=== PATIENT | female | born 1975 | race African-American/Black ===

== ENCOUNTER 2018-06-04 18:47 | Emergency (ER) | payer MEDICAID ==
[~2018-06-04] VITALS: Ht 162.6 cm; Wt 75.0 kg
[2018-06-04 22:46] LABS: CLARITY URINE CLOUDY (CLEAR); KETONES URINE NEGATIVE (NEGATIVE); LEUKOCYTE ESTERASE URINE 1+ (NEGATIVE); NITRITE URINE NEGATIVE (NEGATIVE); OCCULT BLOOD URINE 3+ (NEGATIVE); PROTEIN URINE 2+ (NEGATIVE); SPECIFIC GRAVITY URINE 1.015 (1.005-1.030)
[2018-06-04 22:49] LABS: COLOR URINE BLOODY (YELLOW)
[2018-06-04 22:52] LABS: HEMATOCRIT. 30.7 % (36.0-48.0); HEMOGLOBIN. 9.4 g/dL (12.0-16.0); MEAN CORPUSCULAR HEMOGLOBIN 21.6 pg (28.0-32.0); MEAN CORPUSCULAR VOLUME 70.4 fL (81.0-99.0); MEAN PLATELET VOLUME 9.4 fl (7.4-10.4); PLATELET 153 x1000/uL (130-400); RED BLOOD CELL COUNT 4.36 mill/uL (4.2-5.4); RED CELL DISTRIBUTION WIDTH 28.1 % (11.6-14.6)
[2018-06-04 22:58] LABS: CHLORIDE 110 mEq/L (98-107)
[2018-06-04 23:08] LABS: PROTHROMBIN TIME 10.4 sec (9.6-11.0)
[2018-06-04 23:16] LABS: PLATELET ESTIMATE NORMAL
[2018-06-05 01:11] VITALS: BP 161/103
== END 2018-06-05 01:15 | disposition home or self-care (01) ==
LOC: ER 18:47
DX: D25.9 Leiomyoma of uterus, unspecified (principal); I10 Essential (primary) hypertension; Z98.890 Other specified postprocedural states; Z98.51 Tubal ligation status
CPT/HCPCS: 36415; 76830; 76856; 81025; 84484; 93005; 99284

== ENCOUNTER 2022-07-09 08:25 | Emergency (ER) | payer MEDICAID, OTHER ==
[~2022-07-09] VITALS: Ht 157.5 cm; Wt 82.0 kg
[2022-07-09 09:37] LABS: BASOPHILS % 1.3 % (0.0-2.0); CHLORIDE 107 mEq/L (98-107); HEMATOCRIT. 37.1 % (36.0-48.0); HEMOGLOBIN. 11.7 g/dL (12.0-16.0); LYMPHOCYTES % 22.7 % (20.0-50.0); MEAN CORPUSCULAR HEMOGLOBIN 24.4 pg (28.0-32.0); MONOCYTES % 7.7 % (2.0-8.0); NEUTROPHILS % 67.3 % (40.0-76.0); RED BLOOD CELL COUNT 4.82 mill/uL (4.2-5.4); RED CELL DISTRIBUTION WIDTH 20.1 % (11.6-14.6)
[2022-07-09 10:38] LABS: PLATELET 176 x1000/uL (130-400)
[2022-07-09 10:41] LABS: CLARITY URINE CLEAR (CLEAR); COLOR URINE DARK YELLOW (YELLOW); KETONES URINE 1+ (NEGATIVE); LEUKOCYTE ESTERASE URINE NEGATIVE (NEGATIVE); NITRITE URINE NEGATIVE (NEGATIVE); OCCULT BLOOD URINE 2+ (NEGATIVE); PROTEIN URINE 1+ (NEGATIVE)
[2022-07-09] MEDS ORDERED: POTASSIUM CHLORIDE 20MEQ/PACKET PO NR (10:45)
[2022-07-09] MEDS ORDERED: HYDRALAZINE 20MG/ML VIAL IV ONE ×2 (11:15→14:30)
[2022-07-09] MEDS ORDERED: LORAZEPAM 2MG/ML CPJ IV ONE (11:15)
[2022-07-09] MEDS ORDERED: FOLIC ACID 1 MG, THIAMINE HCL 100 MG, MVI, ADULT NO.1 10 ML in DEXTROSE 5% WATER 1,000 ML IV ONE ×4 (14:30)
[2022-07-09 18:00] VITALS: BP 157/110
== END 2022-07-09 20:00 | disposition short-term general hospital (02) ==
LOC: ER 08:25 → CANBEDREQ 17:41 → ER 20:00
DX: F10.229 Alcohol dependence with intoxication, unspecified (principal); R10.13 Epigastric pain; E87.6 Hypokalemia; I16.0 Hypertensive urgency; Z98.51 Tubal ligation status; Z98.890 Other specified postprocedural states; Y90.0 Blood alcohol level of less than 20 mg/100 ml
CPT/HCPCS: 36415; 70450; 71045; 80053; 81003; 81025; 83690; 84484; 85025; 93005; 96365; 96375; 96376; 99291; J0360; J2060; J3411; J3490; J7070

== ENCOUNTER 2023-03-24 12:17 | Emergency (ER) | payer OTHER ==
[~2023-03-24] VITALS: Ht 162.6 cm; Wt 65.0 kg
[2023-03-24 12:18] VITALS: O2SAT 95
[2023-03-24] MEDS: KETOROLAC 30MG/ML VIAL IV STA (12:42)
[2023-03-24] MEDS: MORPHINE SULFATE 4 MG/ML CPJ (NOT FOR IM USE) IV STA (12:42)
[2023-03-24] MEDS: ONDANSETRON HCL 4MG/2ML INJ IV STA (12:42)
[2023-03-24] MEDS: SODIUM CHLORIDE 0.9% 1,000 ML IV ONE (12:45)
[2023-03-24 13:11] LABS: CLARITY URINE CLOUDY (CLEAR); COLOR URINE YELLOW (YELLOW); GLUCOSE URINE NEGATIVE (NEGATIVE); KETONES URINE NEGATIVE (NEGATIVE); LEUKOCYTE ESTERASE URINE NEGATIVE (NEGATIVE); NITRITE URINE NEGATIVE (NEGATIVE); OCCULT BLOOD URINE NEGATIVE (NEGATIVE); PH URINE 8.5 (4.5-8.0); PROTEIN URINE TRACE (NEGATIVE); SPECIFIC GRAVITY URINE 1.012 (1.005-1.030)
[2023-03-24 13:22] LABS: SQUAMOUS EPITHELIAL CELL URINE 1+ /lpf (RARE/1+)
[2023-03-24 13:23] LABS: AMORPHOUS SEDIMENT URINE 2+ /lpf; BACTERIA URINE TRACE; RBC URINE 0-2 /hpf (0-2); WBC URINE 0-2 /hpf (0-2)
[2023-03-24 13:27] LABS: HEMATOCRIT. 36.1 % (36.0-48.0); HEMOGLOBIN. 11.2 g/dL (12.0-16.0); MEAN CORPUSCULAR HEMOGLOBIN 23.8 pg (28.0-32.0); MEAN CORPUSCULAR VOLUME 76.8 fL (81.0-99.0); RED CELL DISTRIBUTION WIDTH 19.8 % (11.6-14.6); WHITE BLOOD COUNT 5.9 x1000/uL (4.5-11.0)
[2023-03-24 13:38] LABS: HCG SCREEN NEGATIVE
[2023-03-24 13:43] LABS: ALANINE AMINOTRANSFERASE 37 IU/L (10-49); ALBUMIN 4.6 g/dL (3.2-4.8); ASPARTATE AMINOTRANSFERASE 57 IU/L (<34); BILIRUBIN TOTAL 0.9 mg/dL (0.1-1.0); CALCIUM 10.7 mg/dL (8.7-10.4); CARBON DIOXIDE 22 mEq/L (21-32); CHLORIDE 108 mEq/L (98-107); CREATININE 0.9 mg/dL (0.6-1.0); GLUCOSE 96 mg/dL (70-105); POTASSIUM 3.8 mEq/L (3.5-5.1); PROTEIN TOTAL 7.8 g/dL (6.0-8.3); SODIUM 138 mEq/L (136-145); UREA NITROGEN BLOOD 10 mg/dL (9-23)
[2023-03-24 13:54] LABS: DIFFERENTIAL COMMENT 1
[2023-03-24 14:49] LABS: ANISOCYTOSIS 1+; MICROCYTOSIS 1+; PLATELET ESTIMATE NORMAL
[2023-03-24 16:35] VITALS: BP 204/116; PULSE 63; RESP 14; TEMP 97.5
[2023-03-24] MEDS: AMLODIPINE 5MG TABLET PO ONE (17:02)
[2023-03-24] MEDS ORDERED: IBUP-2028 MT (18:06)
== END 2023-03-24 18:38 | disposition home or self-care (01) ==
LOC: ER 12:17
DX: K80.80 Other cholelithiasis without obstruction (principal); F10.20 Alcohol dependence, uncomplicated; I10 Essential (primary) hypertension; Z98.51 Tubal ligation status; Z98.890 Other specified postprocedural states; Y90.9 Presence of alcohol in blood, level not specified
CPT/HCPCS: 99285; 74176; 96374; 96361; 76700; 96375; 80053; 81003; 81025; 84703; 83690; 85025; 36415; J1885; J2405; J2270; J7030

== ENCOUNTER 2024-05-11 08:34 | Emergency (ER) | payer MEDICAID ==
[~2024-05-11] VITALS: Ht 157.5 cm; Wt 81.0 kg
[~2024-05-11 08:34] MED LIST: ALBU18HF2 IH; APIX5TAB MT; LEVO-65 MT; METH4TAB95 MT
[2024-05-11 08:40] VITALS: O2SAT 98
[2024-05-11 09:20] LABS: BASOPHILS % 0.5 % (0.0-2.0); DIFFERENTIAL COMMENT 0; EOSINOPHILS % 0.7 % (0.0-5.0); HEMATOCRIT. 36.2 % (36.0-48.0); HEMOGLOBIN. 11.3 g/dL (12.0-16.0); LYMPHOCYTES % 23.2 % (20.0-50.0); MEAN CORPUSCULAR HEMOGLOBIN 27.1 pg (28.0-32.0); MEAN CORPUSCULAR HGB CONC 31.3 g/dL (31.0-37.0); MEAN CORPUSCULAR VOLUME 86.7 fL (81.0-99.0); MEAN PLATELET VOLUME 11.7 fl (7.4-10.4); MONOCYTES % 5.7 % (2.0-8.0); NEUTROPHILS % 69.9 % (40.0-76.0); PLATELET 201 x1000/uL (130-400); RED BLOOD CELL COUNT 4.18 mill/uL (4.2-5.4); RED CELL DISTRIBUTION WIDTH 15.3 % (11.6-14.6)
[2024-05-11 09:29] LABS: CALCIUM 10.2 mg/dL (8.7-10.4)
[2024-05-11 09:32] LABS: POTASSIUM 3.3 mEq/L (3.5-5.1)
[2024-05-11 09:33] LABS: CREATININE 1.9 mg/dL (0.6-1.0)
[2024-05-11 09:50] LABS: HCG SCREEN NEGATIVE
[2024-05-11] MEDS ORDERED: MORPHINE SULFATE 2 MG/ML INJ (NOT FOR IM USE) IV ONE (10:30)
[2024-05-11] MEDS ORDERED: PANTOPRAZOLE SODIUM 40 MG/VIAL IV ONE (10:30)
[2024-05-11] MEDS ORDERED: ONDANSETRON HCL 4MG/2ML INJ IV ONE (10:30)
[2024-05-11] MEDS: MORPHINE SULFATE 2 MG/ML INJ (NOT FOR IM USE) IV NR (13:23)
[2024-05-11] MEDS: ONDANSETRON HCL 4MG/2ML INJ IV NR (13:23)
[2024-05-11] MEDS: PANTOPRAZOLE SODIUM 40 MG/VIAL IV NR (13:23)
[2024-05-11] MEDS: SODIUM CHLORIDE 0.9% 1,000 ML IV ONE (13:23)
[2024-05-11] MEDS ORDERED: HYDR-4001 MT (15:35)
[2024-05-11] MEDS ORDERED: ONDA4TAB50 MT (15:35)
[2024-05-11 16:12] LABS: CLARITY URINE CLEAR (CLEAR); COLOR URINE YELLOW (YELLOW); GLUCOSE URINE NEGATIVE (NEGATIVE); KETONES URINE TRACE (NEGATIVE); LEUKOCYTE ESTERASE URINE NEGATIVE (NEGATIVE); NITRITE URINE NEGATIVE (NEGATIVE); OCCULT BLOOD URINE 3+ (NEGATIVE); PROTEIN URINE TRACE (NEGATIVE); SPECIFIC GRAVITY URINE 1.019 (1.005-1.030)
[2024-05-11 17:05] LABS: RBC URINE NONE SEEN /hpf (0-2); SQUAMOUS EPITHELIAL CELL URINE 2+ /lpf (RARE/1+)
[2024-05-11 17:06] LABS: BACTERIA URINE NONE SEEN; HYALINE CASTS URINE 0-5 /lpf; WBC URINE 0-2 /hpf (0-2)
[2024-05-11 17:33] VITALS: BP 112/78; PULSE 82; RESP 16; TEMP 37.1; O2SAT 98
== END 2024-05-11 17:37 | disposition home or self-care (01) ==
LOC: ER 08:34
DX: R10.32 Left lower quadrant pain (principal); I69.30 Unspecified sequelae of cerebral infarction; I10 Essential (primary) hypertension
CPT/HCPCS: 99285; 74176; 96365; 96375; 80048; 81003; 84703; 83690; 85025; 36415; J2405; J2470; J2270; J7030

== ENCOUNTER 2024-05-21 01:16 | Emergency (ER) | payer MEDICAID ==
[~2024-05-21] VITALS: Ht 170.2 cm; Wt 59.0 kg
[~2024-05-21 01:16] MED LIST changes: +HYDR-4001 MT; +ONDA4TAB50 MT
[2024-05-21 01:17] VITALS: BP 134/78; PULSE 99; RESP 16; TEMP 36.8; O2SAT 100
[2024-05-21 02:27] LABS: BASOPHILS % 0.6 % (0.0-2.0); DIFFERENTIAL COMMENT 0; EOSINOPHILS % 0.4 % (0.0-5.0); HEMOGLOBIN. 10.3 g/dL (12.0-16.0); LYMPHOCYTES % 16.5 % (20.0-50.0); MEAN CORPUSCULAR HEMOGLOBIN 27.7 pg (28.0-32.0); MEAN CORPUSCULAR HGB CONC 32.2 g/dL (31.0-37.0); MEAN PLATELET VOLUME 11.3 fl (7.4-10.4); MONOCYTES % 6.5 % (2.0-8.0); PLATELET 175 x1000/uL (130-400); RED BLOOD CELL COUNT 3.72 mill/uL (4.2-5.4); RED CELL DISTRIBUTION WIDTH 15.4 % (11.6-14.6); WHITE BLOOD COUNT 9.6 x1000/uL (4.5-11.0)
[2024-05-21 02:36] LABS: CHLORIDE 102 mEq/L (98-107); SODIUM 139 mEq/L (136-145)
[2024-05-21 02:37] LABS: CARBON DIOXIDE 26 mEq/L (21-32); PROTHROMBIN TIME 10.9 sec (9.6-11.0)
[2024-05-21 02:38] LABS: CALCIUM 11.1 mg/dL (8.7-10.4)
[2024-05-21 02:42] LABS: CREATININE 2.2 mg/dL (0.6-1.0)
[2024-05-21 02:43] LABS: GLUCOSE 105 mg/dL (70-105); UREA NITROGEN BLOOD 26 mg/dL (9-23)
[2024-05-21 02:44] LABS: ALANINE AMINOTRANSFERASE < 7 IU/L (10-49)
[2024-05-21 02:45] LABS: ALBUMIN 3.6 g/dL (3.2-4.8); BILIRUBIN DIRECT 0.2 mg/dL (<=3.0); BILIRUBIN TOTAL 0.5 mg/dL (0.1-1.0); PROTEIN TOTAL 6.7 g/dL (6.0-8.3)
[2024-05-21 02:46] LABS: ASPARTATE AMINOTRANSFERASE < 8 IU/L (<34)
[2024-05-21 02:49] LABS: HCG SCREEN NEGATIVE
[2024-05-21] MEDS ORDERED: ONDA-239 PO (03:07)
[2024-05-21] MEDS: ONDANSETRON 4MG ODT PO ONE (03:15)
[2024-05-21] MEDS: MAGNESIUM/ALUMINUM HYDROXIDE/SIMETHICONE 30ML UDC PO ONE (03:15)
== END 2024-05-21 03:36 | disposition home or self-care (01) ==
LOC: ER 01:24
DX: R10.84 Generalized abdominal pain (principal); I10 Essential (primary) hypertension; Z79.01 Long term (current) use of anticoagulants; Z86.73 Personal history of transient ischemic attack (TIA), and cerebral infarction without residual deficits
CPT/HCPCS: 99283; 80076; 80048; 84703; 83690; 85025; 85610; 36415; Q0162

== ENCOUNTER 2024-05-21 03:39 | Emergency (ER) | payer MEDICAID ==
[~2024-05-21] VITALS: Ht 152.4 cm; Wt 73.0 kg
[~2024-05-21 03:39] MED LIST changes: +ONDA-239 PO
[2024-05-21 04:14] VITALS: O2SAT 100
[2024-05-21 04:15] VITALS: BP 126/54; PULSE 76; RESP 18; TEMP 36.9; O2SAT 100
== END 2024-05-21 05:26 | disposition left against medical advice (07) ==
LOC: ER 04:01
DX: R10.9 Unspecified abdominal pain (principal); Z86.73 Personal history of transient ischemic attack (TIA), and cerebral infarction without residual deficits; Z53.21 Procedure and treatment not carried out due to patient leaving prior to being seen by health care provider